=== PATIENT | male | born 1965 | race American Indian/Alaskan Native ===

== ENCOUNTER 2021-10-03 15:06 | Emergency (ER) | payer SELFPAY ==
[2021-10-03] MEDS ORDERED: SODIUM CHLORIDE 0.9% 500 ML 500 ML IV ONE (15:14)
--- NOTE | 2021-10-03 15:16 | Emergency Department Report ---
ED General Adult HPI - General Chief complaint: Weakness Stated complaint: WEAKNESS Time Seen by Provider: 10/03/21 15:13 Source: patient Mode of arrival: Ambulatory Limitations: No Limitations - History of Present Illness Initial comments: Patient was brought in by EMS secondary to generalized weakness. He has been feeling weak for the last day. This is diffuse and bilateral. It is not unilateral. He states that he just does not feel well and does not have any energy. Patient reports "a little" chest pain. Has no cough or congestion. There is no vomiting or diarrhea. EMS reported the patient was hypoxic upon their arrival. Patient states that he really did not feel particularly short of breath. There is no history of recent travel or trauma. He has no recent fever. He has had no dysuria or sick contacts. - Related Data Allergies Allergy/AdvReac Type Severity Reaction Status Date / Time No Known Allergies Allergy Verified 10/03/21 15:14 ED Review of Systems ROS: Stated complaint: WEAKNESS Other details as noted in HPI Comment: All other systems reviewed and negative Constitutional: denies: fever Eyes: denies: eye pain ENT: denies: throat pain Respiratory: denies: cough Cardiovascular: as per HPI, chest pain Endocrine: denies: unexplained weight loss Gastrointestinal: denies: abdominal pain Genitourinary: denies: dysuria Musculoskeletal: denies: back pain Skin: denies: rash Neurological: as per HPI, weakness Hematological/Lymphatic: denies: easy bruising ED Past Medical Hx - Past Medical History Hx Hypertension: Yes Additional medical history: Heart disease - Surgical History Hx Open Heart Surgery: Yes - Family History Family history: hypertension ED Physical Exam - General Limitations: Altered Mental Status (Somnolent), Other (Pulse ox noted and hypoxic. This improves with oxygen.) General appearance: in no apparent distress, obese (Morbid), other (Somnolent) - Head Head exam: Present: atraumatic, normocephalic - Eye Eye exam: Present: normal appearance, PERRL, EOMI. Absent: scleral icterus - ENT ENT exam: Present: normal orophraynx, normal external ear exam - Neck Neck exam: Present: normal inspection. Absent: meningismus - Respiratory Respiratory exam: Present: normal lung sounds bilaterally. Absent: respiratory distress - Cardiovascular Cardiovascular Exam: Present: regular rate, normal rhythm - GI/Abdominal GI/Abdominal exam: Present: soft. Absent: distended, tenderness - Extremities Exam Extremities exam: Present: normal capillary refill, pedal edema (2+ bilateral) - Back Exam Back exam: Present: normal inspection - Neurological Exam Neurological exam: Present: altered (Somnolent), oriented X3, CN II-XII intact, other (Patient does have left-sided deficit consistent with prior stroke. He is somnolent.) - Psychiatric Psychiatric exam: Present: normal mood - Skin Skin exam: Present: warm, dry ED Course Vital Signs 10/03/21 10/03/21 10/03/21 15:34 15:46 16:00 Pulse Rate 87 91 H 88 Respiratory 30 H 18 26 H Rate Blood Pressure 189/99 184/97 O2 Sat by Pulse 92 92 86 Oximetry 10/03/21 10/03/21 10/03/21 16:16 16:29 16:30 Pulse Rate 88 88 Respiratory 28 H 26 H Rate Blood Pressure 184/97 184/97 O2 Sat by Pulse 86 94 90 Oximetry 10/03/21 10/03/21 10/03/21 16:46 17:00 17:16 Pulse Rate 88 88 90 Respiratory 25 H 26 H 19 Rate Blood Pressure 184/97 167/89 167/89 O2 Sat by Pulse 92 93 91 Oximetry 10/03/21 10/03/21 10/03/21 17:30 17:40 17:46 Pulse Rate 90 89 Respiratory 25 H 29 H Rate Blood Pressure 167/89 167/89 O2 Sat by Pulse 90 94 97 Oximetry 10/03/21 10/03/21 10/03/21 18:00 18:16 18:30 Pulse Rate 88 87 88 Respiratory 22 25 H 22 Rate Blood Pressure 187/120 187/120 187/120 O2 Sat by Pulse 98 99 99 Oximetry 10/03/21 10/03/21 10/03/21 18:46 19:00 19:16 Pulse Rate 87 87 86 Respiratory 23 23 22 Rate Blood Pressure 187/120 194/111 194/111 O2 Sat by Pulse 98 98 98 Oximetry 10/03/21 19:30 Pulse Rate 86 Respiratory 22 Rate Blood Pressure 194/111 O2 Sat by Pulse 98 Oximetry - Reevaluation(s) Reevaluation #1: 10/03/21 15:16 EMS was met. Reevaluation #2: 10/03/21 16:17 EKG and chest x-ray are noted. Labs are pending. Reevaluation #3: 10/03/21 22:31 CT was noted. Hospitalist was notified. Case was discussed with Dr. Jacques Jordan, neurosurgery for [facility]. He did not believe that this patient would be appropriate here. He did not believe that we had the technical capability to provide care for this gentleman. We arranged transfer. Case was discussed with Drs. Moya and Charo at [facility] who agreed to accept the patient. Transport will be arranged. Patient was placed on a Cardene drip secondary to ongoing hypertension. ED Medical Decision Making - Lab Data Result diagrams: 10/03/21 15:40 10/03/21 15:40 Rhythm strip: Normal sinus rhythm without ectopy per monitor observe 10 seconds. - EKG Data -: EKG Interpreted by De - EKG Data 10/03/21 16:18 1547-EKG shows normal sinus rhythm at 87. Patient does have a first-degree AV block. NJ interval is 692. QRS is lengthened at 115. QT corrected is normal at 468. Patient has ST depression in V4. There is no ST elevation to suggest STEMI. Patient does have a biphasic T waves in 1 and aVL. No ectopy is noted. - Radiology Data Radiology results: report reviewed - Medical Decision Making Patient presents with somnolence as well as chest pain and difficulty breathing. Clinically, he sounded wet and does have an elevated troponin. However there was no evidence of STEMI on EKG. With the somnolence, he did not have any focal neurologic findings that appeared to be new. He had residual left-sided deficit from prior stroke. CT had been obtained which showed intraventricular bleed with a possible pontine bleed. This was discussed with the radiologist. Due to the persistent hypertension in the 190s over 110s, Cardene had been requested. Patient will be transferred to [facility] for ongoing management. Family is not present at this time to discuss the case. Critical Care Time: Yes (65 minutes exclusive of all procedures) Critical care attestation.: If time is entered above; I have spent that time in minutes in the direct care of this critically ill patient, excluding procedure time. ED Disposition Clinical Impression: Chest pain, Somnolence, Intraventricular hemorrhage Disposition: 04 INTERMEDIATE CARE FACILITY Is pt being admited?: No Condition: Stable Instructions: Nonspecific Chest Pain, Adult Referrals: PRIMARY CARE, [Primary Care Provider] - 3-5 Days
--- NOTE | 2021-10-03 15:35 | XRay Report ---
CHEST 1 VIEW INDICATION / CLINICAL INFORMATION: cough STUDY TIME: 1515 COMPARISON: 04/03/2010 FINDINGS: SUPPORT DEVICES: None HEART / MEDIASTINUM: Interval cardiac surgical drain are seen. Heart is mildly enlarged. LUNGS / PLEURA: There may be a slightly congested appearance given semiupright positioning. Mild biba silar atelectatic changes are noted. No pneumothorax. ADDITIONAL FINDINGS: No significant additional findings. Signer Name: Pavan De La Rosa MD Signed: 10/03/2021 3:31 PM Workstation Name: [id number]
[2021-10-03 16:20] LABS: Albumin 3.5 g/dL (3.9-5); Calcium 9.6 mg/dL (8.4-10.2)
[2021-10-03 16:40] LABS: Basophils % (Auto) 0.3 % (0.0-1.8); Eosinophils % (Auto) 0.1 % (0.0-4.3); Hematocrit 38.4 % (35.5-45.6); Hemoglobin 13.1 gm/dl (11.8-15.2); Lymphocytes # (Auto) 1.2 K/mm3 (1.2-5.4); Lymphocytes % (Auto) 11.5 % (13.4-35.0); Mean Corpuscular HGB Conc 34 % (32-34); Mean Corpuscular Volume 80 fl (84-94); Monocytes # (Auto) 0.6 K/mm3 (0.0-0.8); Monocytes % (Auto) 5.4 % (0.0-7.3); Platelet Count 218 K/mm3 (140-440); Red Blood Count 4.78 M/mm3 (3.65-5.03); Red Cell Distribution Width 18.2 % (13.2-15.2)
[2021-10-03 16:53] LABS: Chol/HDL Ratio 2.56 %
[2021-10-03 17:54] LABS: ABG Methemoglobin 0.5 % (0.0-1.5); ABG PH 7.427 pH Units (7.350-7.450); ABG PO2 65.2 mm Hg (80.0-90.0)
--- NOTE | 2021-10-03 20:09 | History and Physical Report ---
History of Present Illness History of present illness: 55 YO Male with Obesity Hypoventilation Syndrome, HTN, CAD S/P CABG presents to ED for evaluation. Patient was brought in by EMS secondary to generalized weakness. He has been feeling weak for the last day. This is diffuse and bilateral. It is not unilateral. He states that he just does not feel well and does not have any energy. Patient reports "a little" chest pain. Has no cough or congestion. There is no vomiting or diarrhea. EMS reported the patient was hypoxic upon their arrival. Patient states that he really did not feel particularly short of breath. There is no history of recent travel or trauma. He has no recent fever. He has had no dysuria or sick contacts. - Related Data Allergies Allergy/AdvReac Type Severity Reaction Status Date / Time No Known Allergies Allergy Verified 10/03/21 15:14 ED Review of Systems ROS: Stated complaint: WEAKNESS Other details as noted in HPI Comment: All other systems reviewed and negative Constitutional: denies: fever Eyes: denies: eye pain ENT: denies: throat pain Respiratory: denies: cough Cardiovascular: as per HPI, chest pain Endocrine: denies: unexplained weight loss Gastrointestinal: denies: abdominal pain Genitourinary: denies: dysuria Musculoskeletal: denies: back pain Skin: denies: rash Neurological: as per HPI, weakness Hematological/Lymphatic: denies: easy bruising ED Past Medical Hx - Past Medical History Hx Hypertension: Yes Additional medical history: Heart disease - Surgical History Hx Open Heart Surgery: Yes - Family History Family history: hypertension Medications and Allergies Allergies Allergy/AdvReac Type Severity Reaction Status Date / Time No Known Allergies Allergy Verified 10/03/21 15:14 Exam - Constitutional Vitals: Temp Pulse Resp BP Pulse Ox 86 22 194/111 98 10/03/21 19:30 10/03/21 19:30 10/03/21 19:30 10/03/21 19:30 HEART Score - HEART Score Troponin: Troponin T 0.153 ng/mL (0.00-0.029) H* 10/03/21 19:22 Results - Labs CBC & Chem 7: 10/03/21 15:40 10/03/21 15:40 Labs: Abnormal lab results 10/03/21 10/03/21 10/03/21 Range/Units 15:40 15:40 17:39 MCV 80 L (84-94) fl MCH 27 L (28-32) pg RDW 18.2 H (13.2-15.2) % Lymph % (Auto) 11.5 L (13.4-35.0) % Seg Neutrophils % 82.7 H (40.0-70.0) % Seg Neutrophils # 8.6 H (1.8-7.7) K/mm3 ABG pO2 65.2 L (80.0-90.0) mm Hg ABG HCO3 29.0 H (20.0-26.0) mmol/L ABG O2 Saturation 94.0 L (95.0-99.0) % ABG Base Excess 4.0 H (-2.0-3.0) mmol/L ABG Hemoglobin 12.9 L (14.0-18.0) gm/dl Oxyhemoglobin 91.5 L (95.0-99.0) % Creatinine 2.2 H (0.8-1.3) mg/dL Glucose 118 H (75-100) mg/dL Troponin T 0.153 H* (0.00-0.029) ng/mL Albumin 3.5 L (3.9-5) g/dL HDL Cholesterol 73 H (40-59) mg/dL 10/03/21 Range/Units 19:22 MCV (84-94) fl MCH (28-32) pg RDW (13.2-15.2) % Lymph % (Auto) (13.4-35.0) % Seg Neutrophils % (40.0-70.0) % Seg Neutrophils # (1.8-7.7) K/mm3 ABG pO2 (80.0-90.0) mm Hg ABG HCO3 (20.0-26.0) mmol/L ABG O2 Saturation (95.0-99.0) % ABG Base Excess (-2.0-3.0) mmol/L ABG Hemoglobin (14.0-18.0) gm/dl Oxyhemoglobin (95.0-99.0) % Creatinine (0.8-1.3) mg/dL Glucose (75-100) mg/dL Troponin T 0.153 H* (0.00-0.029) ng/mL Albumin (3.9-5) g/dL HDL Cholesterol (40-59) mg/dL
--- NOTE | 2021-10-03 21:40 | Cat Scan Report ---
CT BRAIN: 10/03/2021 INDICATION / CLINICAL INFORMATION: somnolence. COMPARISON: None available. FINDINGS: BRAIN/INTRACRANIAL STRUCTURES: Unenhanced CT images of the brain were obtained. There is hyperdense blood products present in the fourth ventricle, aqueduct of Sylvius, and to asses s lesser degree in the third ventricle. There may be some hemorrhage in the dorsal aspect of the joceline , which may be a point of origin. Ventricles and sulci are prominent in size, in a pattern which be consistent with diffuse cerebral at rophy. There is slightly more prominence to the temporal horns, which may be an indication of develop ing hydrocephalus. Chronic white matter hypoattenuation is present throughout the cerebral hemispheric white matter. EXTRACRANIAL STRUCTURES: Unremarkable. IMPRESSION: Ventricular blood products in the third and fourth ventricles, with some possible hemorrhagic change s in the dorsal joceline. Atrophic changes with ventriculomegaly. Developing hydrocephalus cannot be excluded. CRITICAL RESULT: Time of Discovery (DAIRY C[employer] F[employer] MANAGER/CDT): 2031 Time of Communication (DAIRY CATTLE FARM MANAGER/CDT): 2034 Licensed Practitioner Receiving Report: Dr. Amin Read-Back Performed: N/A All CT scans at this location are performed using dose reduction to ALARA by means of automated expos ure control. Signer Name: Talat Clements MD Signed: 10/03/2021 9:35 PM Workstation Name: [id number]
[2021-10-03] MEDS ORDERED: niCARdipine DRIP 40 MG/200 ML BAG IV ONE (21:41)
[2021-10-03 23:05] VITALS: BP 199/112
[2021-10-03 23:40] LABS: INR 1.13 (0.87-1.13); Partial Thromboplastin Time 24.3 Sec. (24.2-36.6)
--- NOTE | 2021-10-04 10:11 | Electrocardiograph Report ---
[facility] Test Date: 2021-10-03 Test Time: 15:47:37 Pat Name: CALIXTO ARTIS Department: Room: Gender: M [employer] Salesperson: GP : 1965 Requested By: DIONE CHOUDHARY Order Number: [id number] Reading MD: Arabella Iqbal Measurements Intervals [place] Rate: 87 P: 108 NC: 295 QRS: 37 QRSD: 115 T: 129 QT: 389 QTc: 468 Interpretive Statements Sinus rhythm Prolonged NC interval Nonspecific T wave change No previous ECG available for comparison Electronically Signed On 10-04-2021 10:11:12 EST by Arabella Iqbal
== END 2021-10-04 00:03 ==
LOC: ED 15:06
DX: R40.0 Somnolence (principal); P52.22 Intraventricular (nontraumatic) hemorrhage, grade 4, of newborn; I61.5 Nontraumatic intracerebral hemorrhage, intraventricular; I10 Essential (primary) hypertension
CPT/HCPCS: 70450; 71045; 80053; 80061; 82140; 82803; 84443; 84484; 85025; 85610; 85730; 93005; 93010; 96361; 96365; 99291; J3490; J7040; 80320; 99285; G0480